=== PATIENT | male | born 1975 ===

== ENCOUNTER 2018-02-10 06:10 | Day surgery (SDC) | payer OTHER ==
[~2018-02-10 06:10] MED LIST: BUSPAR PO; LOPRESSOR HCT1 EACH PO; PROSOM PO; WELLBUTRIN SR150 MG PO; ZESTRIL40 M1 PO
[2018-02-10] MEDS ORDERED: PERCOCET 5-3251 EACH PO (08:52)
[2018-02-10] MEDS ORDERED: RECTICARE30 GM TOP (08:55)
[2018-02-10] MEDS ORDERED: FLAGYL500MG PO (09:00)
[2018-02-10] MEDS ORDERED: CIPRO500 MG PO (09:00)
== END 2018-02-10 15:25 | disposition home or self-care (01) ==
LOC: CIR.AMB 06:10 → RECOVERY 12:00 → EDSTATUS 12:00 → CIR.AMB 15:25
DX: K60.5 Anorectal fistula (principal)

== ENCOUNTER 2018-04-07 05:20 | Day surgery (SDC) | payer OTHER ==
[~2018-04-07 05:20] MED LIST changes: +AMLODIPINE PO; +CIPRO500 MG PO; +FLAGYL500MG PO; +LOPRESSOR PO; +PERCOCET 5-3251 EACH PO; +RECTICARE30 GM TOP
[2018-04-07] MEDS ORDERED: RECTICARE30 GM TOP (09:43)
[2018-04-07] MEDS ORDERED: PERCOCET 5-3251 EACH PO (09:43)
== END 2018-04-07 17:50 | disposition home or self-care (01) ==
LOC: CIR.AMB 05:20
DX: K60.5 Anorectal fistula (principal)

== ENCOUNTER 2020-04-09 10:06 | Day surgery (SDC) | payer OTHER | END 2020-04-09 14:34 | disposition home or self-care (01) | LOC: AMB-ENDOS 10:06 | PROVIDERS: ATTEND Surgery | DX: K62.89 Other specified diseases of anus and rectum (principal); K64.8 Other hemorrhoids; Z20.828 Contact with and (suspected) exposure to other viral communicable diseases ==